=== PATIENT | female | born 1990 | race Caucasian/White ===

== ENCOUNTER → 2023-04-05 | Outpatient (CLI) | payer SELFPAY ==
--- OUTSIDE RECORDS SUMMARY | 2023-04-05 20:03 | XMS RPT_ITS | CCD ---
Author Name Unknown Address [address] [place] [address] Organization [facility] Care Team Providers Care Test Skein Winder Name Role Phone [facility] Primary Care Provider Unav ailable Kindra CUSTOMER SECURITY CLERK, Deyvi Primary Care Provider [phone] DEYVI BROWN Attending Unavailable DEYVI BROWN Admitting Unavailable DEYVI BROWN Primary Care Unavailable DEYVI BROWN Attending Unavailable DEYVI BROWN Admitting Unavailable DEYVI BROWN Primary Care Unavailable CARLENE BANG Attending Unavailable [facility] Primary Care Unavailable MARY JACKSON Attending Unavailable [facility] Primary Care Unavailable [facility] Primary Care Unavailable MARY JACKSON Referring Unavailable DEYVI BROWN Primary Care Unavailable MARY JACKSON Attending Unavailable JAIMIE DIXON Attending Unavailable MADEDEYVI Rodríguez Primary Care Unavailable CARLENE BANG Referring Unavailable [facility] Primary Care Unavailable CARLENE BANG Referring Unavailable [facility] Primary Care Unavailable MARY JACKSON Attending Unavailable [facility] Primary Care Unavailable MARY JACKSON Referring Unavailable [facility] Primary Care Unavailable MARY JACKSON Attending Unavailable MADEMarcos DEYVI Primary Care Unavailable MARY JACKSON Attending Unavailable MARY JACKSON Referring Unavailable Medications Current Medications Medication Drug Class(es) Dates Sig (Normalized) Sig (Original) escitalopram 10 mg oral tablet (9 sources) Serotonin Reuptake Inhibitor Start: 07-04-2022 take 1 tablet by mouth once daily escitalopram (Lexapro) 10 MG tablet TAKE 1 TABLET BY MOUTH EVERY DAY FOR 90 DAYS 0 07/04/2022 Active hydrOXYzine hydrochloride 25 mg oral tablet (1 source) Antihistamine Start: 01-08-2023 take 1-2 tablets by mouth three times daily as needed hydrOXYzine HCl (Atarax) 25 MG tablet 1-2 TABLET ORALLY THREE TIMES DAILY NEEDED 30 DAYS 0 01/08/2023 Active meloxicam 7.5 mg oral tablet (1 source) Nonsteroidal Anti-inflammatory Drug Start: 10-08-2022 End: 10-18-2022 take 1 tablet by mouth once daily meloxicam (Mobic) 7.5 MG tablet Indications: Left foot pain Take 1 tablet (7.5 mg) by mouth daily for 10 days. 10 tablet 0 10/08/2022 10/18/2022 Active Problems Active Problems Problem Classification Problem Date Documented Date Episodic/Chronic Menstrual disorders (3 sources) Mid-cycle bleeding; Translations: [Ovulation bleeding] Onset: 4 03-28-2023 Chronic Other connective tissue disease (7 sources) Pain in left foot; Translations: [Pain in left foot] 10-08-2022 Episodic Other connective tissue disease (1 source) Swelling of left foot; Translations: [Other specified soft tissue disorders] 12-21-2022 Episodic Other non-traumatic joint disorders (1 source) Effusion of first metatarsophalangeal joint; Translations: [Effusion, unspecified foot] 12-21-2022 Episodic Residual codes; unclassified (2 sources) Obstructive sleep apnea (adult) (pediatric); Translations: [OBSTRUCTIVE SLEEP APNEA] Onset: 3 Chronic Past or Other Problems Problem Classification Problem Date Documented Da te Episodic/Chronic Other connective tissue disease (2 sources) Other specified soft tissue disorders; Translations: [Other specified soft tissue disorders] Onset: 12-21-2022 Episodic Other connective tissue disease (2 sources) Pain in left foot; Translations: [Pain in left foot] Onset: 10-08-2022 Episodic Other non-traumatic joint disorders (2 sources) Effusion, unspecified foot; Translations: [Effusion, unspecified foot] Onset: 12-21-2022 Episodic Results Test Name Value Interpretation Reference Range Facil ity Vital Signs Date Time Vital Sign Value Performing Clinician Faci lity 03-28-2023 10:01-0500 Body height 162.6 cm Jaimie Dixon MD Work Phone: [facility] 03-28-2023 10:01-0500 Body mass index (BMI) [Ratio] 38.96 kg/m2 Jaimie Dixon MD Work Phone: [facility] 03-28-2023 10:01-0500 Body weight 102.97 kg Jaimie Dixon MD Work Phone: [facility] 03-28-2023 10:01-0500 Diastolic blood pressure 81 mm[Hg] Jaimie Dixon MD Work Phone: [facility] 03-28-2023 10:01-0500 Heart rate 80 /min Jaimie Dixon MD Work Phone: [facility] 03-28-2023 10:01-0500 Systolic blood pressure 133 mm[Hg] Jaimie Dixon MD Work Phone: [facility] 12-21-2022 08:19-0400 Body height 165.1 cm Tabernash Heindel DO Work Phone: [facility] 12-21-2022 08:19-0400 Body mass index (BMI) [Ratio] 36.44 kg/m2 Tabernash Heindel DO Work Phone: [facility] 12-21-2022 08:19-0400 Body weight 99.34 kg Tabernash Heindel DO Work Phone: [facility] 12-21-2022 08:19-0400 Diastolic blood pressure 74 mm[Hg] Tabernash Heindel DO Work Phone: [facility] 12-21-2022 08:19-0400 Heart rate 71 /min Tabernash Heindel DO Work Phone: [facility] 12-21-2022 08:19-0400 Systolic blood pressure 109 mm[Hg] Tabernash Heindel DO Work Phone: [facility] 11-16-2022 08:30-0400 Body height 165.1 cm Tabernash Heindel DO Work Phone: [facility] 11-16-2022 08:30-0400 Body mass index (BMI) [Ratio] 36.44 kg/m2 Tabernash Heindel DO Work Phone: [facility] 11-16-2022 08:30-0400 Body weight 99.34 kg Tabernash Heindel DO Work Phone: [facility] 11-16-2022 08:30-0400 Diastolic blood pressure 77 mm[Hg] Tabernash Heindel DO Work Phone: [facility] 11-16-2022 08:30-0400 Systolic blood pressure 111 mm[Hg] Tabernash Heindel DO Work Phone: [facility] 11-06-2022 10:14-0400 Body height 165.1 cm Tabernash Heindel DO Work Phone: [facility] 11-06-2022 10:14-0400 Body mass index (BMI) [Ratio] 36.44 kg/m2 Tabernash Heindel DO Work Phone: [facility] 11-06-2022 10:14-0400 Body weight 99.34 kg Tabernash Heindel DO Work Phone: [facility] 11-06-2022 10:14-0400 Diastolic blood pressure 79 mm[Hg] Tabernash Heindel DO Work Phone: [facility] 11-06-2022 10:14-0400 Heart rate 75 /min Tabernash Heindel DO Work Phone: [facility] 11-06-2022 10:14-0400 Systolic blood pressure 114 mm[Hg] Tabernash Heindel DO Work Phone: [facility] 10-25-2022 13:33-0400 Body height 165.1 cm Tabernash Heindel DO Work Phone: [facility] 10-25-2022 13:33-0400 Body mass index (BMI) [Ratio] 36.44 kg/m2 Tabernash Heindel DO Work Phone: [facility] 10-25-2022 13:33-0400 Body weight 99.34 kg Tabernash Heindel DO Work Phone: [facility] 10-25-2022 13:33-0400 Diastolic blood pressure 81 mm[Hg] Tabernash Heindel DO Work Phone: [facility] 10-25-2022 13:33-0400 Heart rate 73 /min Tabernash Heindel DO Work Phone: [facility] 10-25-2022 13:33-0400 Systolic blood pressure 123 mm[Hg] Tabernash Heindel DO Work Phone: [facility] 10-08-2022 12:51-0400 Body mass index (BMI) [Ratio] 36.44 kg/m2 Carlene Shannondallasjennifer EMOTIONALLY IMPAIRED TEACHER - GASTROENTEROLOGY PROFESSOR Work Phone: [facility] 10-08-2022 12:51-0400 Body temperature 98.01 [degF] Carlene Shannondallasjennifer EMOTIONALLY IMPAIRED TEACHER - GASTROENTEROLOGY PROFESSOR Work Phone: [facility] 10-08-2022 12:51-0400 Body weight 99.34 kg Carlene Bang EMOTIONALLY IMPAIRED TEACHER - GASTROENTEROLOGY PROFESSOR Work Phone: [facility] 10-08-2022 12:51-0400 Diastolic blood pressure 80 mm[Hg] Carlene Bang EMOTIONALLY IMPAIRED TEACHER - GASTROENTEROLOGY PROFESSOR Work Phone: [facility] 10-08-2022 12:51-0400 Heart rate 71 /min Carlene Shannondallasjennifer EMOTIONALLY IMPAIRED TEACHER - GASTROENTEROLOGY PROFESSOR Work Phone: [facility] 10-08-2022 12:51-0400 SaO2% (BldA) [Mass fraction] 96 % Carlene Bang EMOTIONALLY IMPAIRED TEACHER - GASTROENTEROLOGY PROFESSOR Work Phone: [facility] 10-08-2022 12:51-0400 Systolic blood pressure 133 mm[Hg] Carlene Bang EMOTIONALLY IMPAIRED TEACHER - GASTROENTEROLOGY PROFESSOR Work Phone: [facility] Encounters Encounter Date Encounter Type Care Provider Facility Start: 03-28-2023 End: 03-28-2023 ambulatory JAIMIE DIXON [facility] Start: 03-28-2023 End: 03-28-2023 Encounter for gynecological examination (general) (routine) without abnormal findings JAIMIE DIXON [facility] Start: 03-28-2023 End: 03-28-2023 Initial preventive medicine new pt age 18-39yrs Jaimie Dixon MD Work Phone: [facility] Procedures Date Procedure Procedure Detail Performing Clinician Start: 12-11-2022 Mri lower extrem oth /thn jt w/o contr matrl Mary Jackson DO Work Phone: Start: 11-06-2022 Follow-up visit Follow-up MARY MATTNICOLE Start: 10-25-2022 Radex foot complete minimum 3 views Mary Jackson DO Work Phone: Start: 10-08-2022 Radex foot complete minimum 3 views Carlene Mayank Bang EMOTIONALLY IMPAIRED TEACHER - GASTROENTEROLOGY PROFESSOR Work Phone: Plan of Treatment Date Care Activity Detail Author Start: 2050 RSV Immunization aged 60 or older (1 - 1-dose 60+ series) RSV Immunization aged 60 or older (1 - 1-dose 60+ series) [facility] Start: 2040 Zoster Vaccines (1 of 2) Zoster Vaccines (1 of 2) [facility] Start: 07-11-2023 End: 07-11-2023 Patient encounter procedure 07/11/2023 8:00 AM EDT Office Visit [facility] [address] [place] [address] Naveen Roger DO [address] [place] [address] [facility] Start: 04-23-2023 End: 04-23-2023 Patient encounter procedure 04/23/2023 10:45 AM EST Office Visit [facility] [address] [place] [address] [address] [place] [address] Jaimie Dixon MD [address] [place] [address] [facility] Start: 04-23-2023 End: 04-23-2023 Professional / ancillary services management 04/23/2023 10:00 AM EST Ancillary Procedure [facility] [address] [place] [address] [facility] Start: 03-28-2023 End: 03-28-2024 Thyroxine (T4) free [Mass/volume] in Serum or Plasma T4, free Lab Routine Intermenstrual bleeding Expected: 03/28/2023 (Approximate), Expires: 03/28/2024 [facility] Payers Date Payer Category Payer Unknown [facility] [id number] 2014-Present [address] [place] [address] Commercial [id number] 1990 Unknown [id number] 1990 Unknown [id number] 1959 Self-pay 1959 Unknown [id number] Social History Date Type Detail Facility Start: 03-24-2022 Tobacco smoking status NHIS Never sm oked tobacco [facility] Start: 03-24-2022 Tobacco use and exposure Smokeless t obacco non-user [facility] Start: 10-08-2022 End: 03-28-2023 Alcohol intake Current drinker of alcohol (finding) [facility] Start: 10-08-2022 End: 03-28-2023 Alcohol intake [facility] Start: 10-08-2022 End: 03-28-2023 Tobacco use panel [facility] Start: 1990 Sex Assigned At Not on file [facility] Start: 10-15-2022 End: 11-20-2022 Exposure to SARS-CoV-2 (event) Not sure [facility] Clinical Notes 10-08-2022 to 03-28-2023 Jaimie Dixon MD - 03/28/2023 10:00 AM Case Angela Jackson, DO - 12/21/2022 8:30 AM Stephen Jackson, DO - 11/16/2022 8:30 AM Stephen Jackson, DO - 11/06/2022 10:10 AM EDT Note Date & Type Note Facility 03-28-2023 History of Presen t illness Narrative Formatting of this note is different fro m the original. Serenity Bello 03/28/2023 32 y.o. Primary Care Physician: Deyvi Brown NP Chief Complaint Patient presents with New Patient Annual exam HPI : Serenity Bello is a 32 y.o. female here for annual exam Gynecologic History: Patient's last menstrual period was 03/02/2023 (exact date). Menses are regular. Menses occur every regular every 28-30 days. Flow is moderate. Intermenstrual bleeding: Yes spotting midcycle about 6 times over a calendar year Dysmenorrhea: Yes Sexually Active: never. She denies a chance of or STIs STD History: No Reversible Control: No HPV vaccination completed: No PAP: n/a OB History Para Term AB Living 0 0 0 0 0 0 SAB IAB Ectopic Multiple Live Births 0 0 0 0 0 History reviewed. No pertinent past medical history. History reviewed. No pertinent surgical history. Family History Problem Relation Name Age of Onset Kidney disease Mother accident at 17 caused her to be paralized Cancer Maternal Grandfather Cancer Paternal Grandfather Social History Socioeconomic History Marital status: Single Spouse name: Not on file Number of children: Not on file Years of education: Not on file Highest education level: Not on file Occupational History Not on file Tobacco Use Smoking status: Never Smokeless tobacco: Never Vaping Use Vaping Use: Never used Substance and Sexual Activity Alcohol use: Yes Alcohol/week: 1.0 standard drink of alcohol Types: 1 Glasses of wine per week Drug use: Never Sexual activity: Never Other Topics Concern Not on file Social History Narrative Not on file Social Determinants of Health Financial Resource Strain: Not on file Food Insecurity: Not on file Transportation Needs: Not on file Physical Activity: Not on file Stress: Not on file Social Connections: Not on file Intimate Partner Violence: Not on file Housing Stability: Not on file MEDICATIONS: Current Outpatient Medications Medication Sig Dispense Refill escitalopram (Lexapro) 10 MG tablet TAKE 1 TABLET BY MOUTH EVERY DAY FOR 90 DAYS hydrOXYzine HCl (Atarax) 25 MG tablet 1-2 TABLET ORALLY THREE TIMES DAILY NEEDED 30 DAYS No current facility-administered medications for this visit. ALLERGIES: Allergies as of 03/28/2023 (No Known Allergies) REVIEW OF SYSTEMS: CONSTIUTIONAL: No fever, chills or malaise; No weight change or fatigue CV: No Chest Pain with Exertion, Palpitations, Syncope, Edema, Arrhythmia RESPIRATORY: No SOB, Pneumoniae,Cough, BREAST: No breast abnormalities or lumps GI: No Indigestion, Heartburn, Nausea, vomiting, Diarrhea, Constipation,Bloating or Bowel Changes; No Bloody Stools or melena : No Dysuria, Hematuria or Nocturia. No Urinary Incontinence or Vaginal Discharge,vaginal bleeding, or dysparuenia. NEURO: No CVA, Migraines, Epilepsy, Seizure Hx, or Limb Weakness DERM: No Rash, Itching, Hives, Mole Changes or Cancer PSYCH: No Depression, Homicidal thoughts,suicidal thoughts, or anxiety MUSCULOSKELETAL: No Arthralgia, Arthritis,Gout,Osteoporosis or Rheumatism HEME and LYMPH :No Lymphoma, Von Willebrand's, Hemophillia or Bleeding History PHYSICAL EXAM: Vitals: 03/28/23 1001 BP: 133/81 Pulse: 80 Weight: 227 lb (103 kg) Height: 5' 4 (1.626 m) Body mass index is 38.96 kg/m . NURSING UNIT COORDINATOR EXAM: Breasts: no masses no skin changes, no nipple retraction or discharge. EXTERNAL GENITALIA: normal female structures VAGINA: normal ruggae, no lesions, normal discharge CERVIX: no lesions, no cervical motion tenderness, normal appearance. VAGINA VAULT: normal. Minimal relaxation UTERUS: normal mobility, nontender, normal size, shape and consistency. ADNEXA: normal, non tender no masses URETHRA: normal. nontender BLADDER: non tender. ANUS/PERINEUM: no hemorrhoids, masses or warts noted. GENERAL EXAM CONSTITUTIONAL: Well developed, well nourished, well groomed. no acute distress NECK: no thyromegaly, supple. CARDIOVASCULAR: normal rate and rhythm, no edema RESPIRATORY: Normal effort, normal lung sounds ABDOMEN:soft, non-tender, non-distended, no hepatospleenomegaly SKIN: intact, dry NEUROLOGICAL: no gross motor or sensory deficits noted. . MUSCULOSKETAL: normal gait, no cyanosis. PSYCHIATRIC Normal mood and affect, A&O x3. ASSESSMENT/PLAN: There are no diagnoses linked to this encounter. No follow-ups on file. control and barrier recommendations discussed. STD counseling and prevention reviewed. Gardisil counseling completed for all patients 9-26 yo. Routine health maintenance per patients PCP. Osteoporosis is a disease process that begins in young women. Recommended daily intake is Calcium 1000mg and Vitamin D 600IU daily to help build strong bones for later in life. Healthy diet and exercise is encouraged, goal is a normal BMI of <25. ACOG Pap smear guidelines not recommended for women under the age of 21.An annual exam with pelvic exam and physician discussion is still recommended. Recommended screening for STDs to help ensure future fertility and decrease risk of pelvic inflammatory disease. Respect your body and protect it from STDs and by requesting your partner to wear a condom. It is recommended to obtain the HPV vaccine for cervical cancer prevention. Be up to date on vaccines including Tetanus (DPT), Rubella, and Varicella (chicken pox). PAP Ultrasound TSH and free T4 A follow up will be scheduled to review her results. documented in this encounter [facility] 12-21-2022 History of Presen t illness Narrative Formatting of this note is different fro m the original. Images from the original note were not included. [facility] [address] [place] [phone] Dept: [phone] Dept Chief Complaint Patient presents with Follow-up Left Foot Subjective History of Present Illness: Serenity Bello follows up today for left foot pain. Since the last visit on 11/16/2022, symptoms are worsening. Current symptoms are aching and throbbing. She rates symptoms as a 2/10 at rest and a 4/10 at worst. Imaging to date: X-ray October 2022 and MRI November 2022 Treatment to date: PT/OT/HEP: HEP not helping Ice: no Heat: no Medications: Tylenol: no NSAIDs: meloxicam daily for 10 days (7.5mg) Oral steroids: no Muscle relaxants: no Nerve medications: no Targeted injections: none Assistive devices: none Denies fevers, malaise, redness, warmth. Symptoms have been since August. Has had some swelling. Never warm or red. Fall risk assessment: Less than 65, not applicable Objective Visit Vitals BP 109/74 Pulse 71 Physical Exam: General: Alert, well appearing, no acute distress. Respiratory: Breathing comfortably on room air. No respiratory distress. Skin: Warm, dry, intact. No visible rashes or erythema overlying area of focused exam. Left foot Inspection: Swelling: mild throughout dorsal foot Ecchymosis: is not observed Very sathya diffuse erythema today . no warmth Edema: None Ankle ROM: normal and equal bilaterally Pain to palpation: base of 4th met, mild at calcaneus No pain to: Nontender elsewhere throughout foot, ankle Vascular: normal DP and PT pulses, no trophic changes or ulcerative lesions, and normal sensory exam Right foot Inspection: Swelling: none Ecchymosis: is not observed No erythema . no warmth Edema: None Ankle ROM: normal and equal bilaterally Vascular: no trophic changes or ulcerative lesions, and normal sensory exam External Notes None available Labs No results found for: HGBA1C No results found for: CREATININE Imaging Patient Name: SERENITY BELLO : 1990 [facility]#: [id number] Exam Date/Time: 12/11/2022 14:24 Procedure: MR FOOT LEFT WO IV CONTRAST Ordering Provider: JACKSON BLOSSOM Reason For Exam: Examination: MRI Left foot Clinical Indication: Pain Comparison: None Findings Multiplanar multisequence MRI images were obtained through the foot without intravenous gadolinium. Nonspecific subcutaneous edema along the dorsum of the mid and forefoot. No focal fluid collection. Small first MTP joint effusion. No additional joint effusion. No evidence of fracture, dislocation, or subluxation. No periostitis or abnormal bone marrow signal intensity. No solid or cystic mass lesion. No significant productive or erosive arthropathy. No intermetatarsal bursitis or neuroma. No evidence of plantar fasciitis or fibroma. No evidence of plantar plate injury. The visualized flexor and extensor tendons are intact without evidence of tenosynovitis, tendinosis, or tear. Normal muscle volume and signal intensity. IMPRESSION: Impression: 1. Nonspecific subcutaneous edema along the dorsum of the mid and forefoot. No focal fluid collection. 2. Small first MTP joint effusion. Imaging independently reviewed in room with patient. Agree with radiologist interpretation. Additionally there does appear to be small effusions at the 3rd and 4th tmt joints. EMG/NCT None available Procedure No procedures completed today Assessment Diagnosis Plan 1. Effusion of metatarsophalangeal (MTP) joint of great toe Rheumatoid factor Sedimentation rate, automated C-reactive protein GAUDENCIO Cyclic citrul peptide antibody, IgG CBC auto differential Uric acid Rheumatoid factor Sedimentation rate, automated C-reactive protein GAUDENCIO Cyclic citrul peptide antibody, IgG CBC auto differential Uric acid 2. Swelling of left foot Rheumatoid factor Sedimentation rate, automated C-reactive protein GAUDENCIO Cyclic citrul peptide antibody, IgG CBC auto differential Uric acid Rheumatoid factor Sedimentation rate, automated C-reactive protein GAUDENCIO Cyclic citrul peptide antibody, IgG CBC auto differential Uric acid Plan Imaging reviewed in room with patient. Discussed the non specific soft tissue swelling as well as joint effusions. Given overall clinical picture I think infection unlikely, though a possibility given the subcutaneous edema. Inflammatory disordes also possible. Will get labs for further evaluation. If not suggestive of infection will treat with prednisone, consider rheumatology referral. Will follow up once blood work completed to review results and next steps. No follow-ups on file. Mary Jackson DO 12/21/2022 8:14 AM Please note that portions of this note may have been completed with voice recognition software. Documentation reviewed prior to signing but minor errors in triage registered nurse may have occurred. documented in this encounter [facility] 11-16-2022 History of Presen t illness Narrative Formatting of this note is different fro m the original. Images from the original note were not included. [facility] [address] [place] [phone] Dept: [phone] Dept Chief Complaint Patient presents with Follow-up Left foot Subjective History of Present Illness: Serenity Bello follows up today for left foot pain. Since the last visit on 11/06/2022, symptoms are improving, 20% better. Current symptoms are aching. She rates symptoms as a 4/10 at rest and a 5/10 at worst. Imaging to date: X-ray September 2022 Treatment to date: PT/OT/HEP: HEP, helpful Ice: no Heat: no Medications: Tylenol: no NSAIDs: Meloxicam Oral steroids: no Muscle relaxants: no Nerve medications: no Targeted injections: none Assistive devices: pneumatic boot, wore consistently 1 week ago, not as consistently this past week. Continues to have pain whether or not she wears the boot Fall risk assessment: Less than 65, not applicable Objective Visit Vitals BP 111/77 Physical Exam: General: Alert, well appearing, no acute distress. Respiratory: Breathing comfortably on room air. No respiratory distress. Skin: Warm, dry, intact. No visible rashes or erythema overlying area of focused exam. Left Foot: Inspection: Swelling: none Ecchymosis: is not observed No redness noted. no warmth Edema: Trace Ankle ROM: normal Pain to palpation: Midshaft and base of 3rd and 4th metatarsals, now also mildly tender shaft of 5th met. Worst tenderness remains at base of 4th. Mild ttp atfl today. No pain to: Nontender elsewhere throughout foot, ankle and lowerleg Laxity/ Other tests: Anterior Drawer: trace, Inversion Talar Tilt: negative, Eversion Talar Tilt: negative, Kleiger's Test: negative, Metatarsal Squeeze / Compression Test: negative, and Hop Test: mild pain Strength: 5 on 5 tibialis anterior strength, 5 of 5 EHL strength, 5 of 5 gastroc-soleus strength, 5 of 5 EDL strength, 5 of 5 peroneus longus, 5 of 5 tibialis posterior, 5 of 5 FHL, and 5 of 5 FDL, 5/5 EHL, 5/5 EDL Vascular: normal DP and PT pulses, no trophic changes or ulcerative lesions, and normal sensory exam Foot position: Subtalar Neutral. Normal arch. External Notes No pertinent interval updates Labs No results found for: HGBA1C No results found for: CREATININE Imaging L foot x rays repeated today and independently reviewed Midfoot alignment maintained. No fracture or periosteal reaction. Normal soft tissues. EMG/NCT None available Procedure No procedures completed today Assessment Diagnosis Plan 1. Left foot pain XR foot 3+ views left MR foot left wo IV contrast Plan Ongoing pain and tenderness localized to the base of the 4th metatarsal not improved with one month of walking boot for presumptive bone stress injury. Also no significant improvement with HEP that was given at last visit or Meloxicam previously prescribed. Exam remains concerning for bony pathology. Given this, will proceed with MRI for diagnostic clarity. In the interim ok to wean out of boot as tolerated since she has not had benefit from it. Continue HEP with activity modification and tylenol or nsaids as needed. Will follow up once MRI completed to review results and next steps. Follow up for TBD pending MRI. Mary Jackson DO 11/16/2022 8:31 AM Please note that portions of this note may have been completed with voice recognition software. Documentation reviewed prior to signing but minor errors in triage registered nurse may have occurred. documented in this encounter [facility] 11-06-2022 History of Presen t illness Narrative Formatting of this note is different fro m the original. Images from the original note were not included. [facility] [address] [place] [id number] Dept: [phone] Dept Chief Complaint Patient presents with Follow-up Left foot Subjective History of Present Illness: Serenity Bello follows up today for right foot pain. Since the last visit on 10/25/2022, symptoms are improving, 30% better. Current symptoms are aching. She rates symptoms as a 2/10 at rest and a 6/10 at worst. Imaging to date: X-ray September 2022 Treatment to date: PT/OT/HEP: no Ice: no Heat: no Medications: Tylenol: no NSAIDs: no Oral steroids: no Muscle relaxants: no Nerve medications: no Targeted injections: none Assistive devices: pneumatic boot Pain seems to have moved. Now worse at lateral ankle. Fall risk assessment: Less than 65, not applicable Objective Visit Vitals BP 114/79 Pulse 75 Physical Exam: General: Alert, well appearing, no acute distress. Respiratory: Breathing comfortably on room air. No respiratory distress. Skin: Warm, dry, intact. No visible rashes or erythema overlying area of focused exam. Left Foot: Inspection: Swelling: none Ecchymosis: is not observed No redness noted. no warmth Edema: Trace Ankle ROM: normal Pain to palpation: Midshaft and base of 3rd and 4th metatarsals - less tender htan last exam. Now today worst ttp over ATFL No pain to: Nontender elsewhere throughout foot, ankle and lowerleg Laxity/ Other tests: Anterior Drawer: trace, Inversion Talar Tilt: negative, Eversion Talar Tilt: negative, Kleiger's Test: negative, Metatarsal Squeeze / Compression Test: negative, and Hop Test: negative Strength: 5 on 5 tibialis anterior strength, 5 of 5 EHL strength, 5 of 5 gastroc-soleus strength, 5 of 5 EDL strength, 5 of 5 peroneus longus, 5 of 5 tibialis posterior, 5 of 5 FHL, and 5 of 5 FDL Vascular: normal DP and PT pulses, no trophic changes or ulcerative lesions, and normal sensory exam Foot position: Subtalar Neutral. Normal arch. External Notes No pertinent interval updates Labs No results found for: HGBA1C No results found for: CREATININE Imaging No new imaging since last visit EMG/NCT None available Procedure No procedures completed today Assessment No diagnosis found. Plan Less tender over metatarsals and no pain with hop, do see some improvement with boot for presumed BSI. ATFL pain today may be related to positioning from boot use Will do two more weeks wbat in walking boot. Can come out of boot to do foot/ankle strengthening hep which was given today Two week recheck. Consider mri for diagnostic clarity if ongoin significant bony pain not improved with four weeks in boot and start of HEP. No follow-ups on file. Mary Jackson DO 11/06/2022 10:12 AM Please note that portions of this note may have been completed with voice recognition software. Documentation reviewed prior to signing but minor errors in triage registered nurse may have occurred. documented in this encounter [facility] 11-06-2022 History of Presen t illness Narrative Formatting of this note is different fro m the original. Images from the original note were not included. [facility] [id number] Dept: [phone] Dept Chief Complaint Patient presents with Follow-up Left foot Subjective History of Present Illness: Serenity Bello follows up today for right foot pain. Since the last visit on 10/25/2022, symptoms are improving, 30% better. Current symptoms are aching. She rates symptoms as a 2/10 at rest and a 6/10 at worst. Imaging to date: X-ray September 2022 Treatment to date: PT/OT/HEP: no Ice: no Heat: no Medications: Tylenol: no NSAIDs: no Oral steroids: no Muscle relaxants: no Nerve medications: no Targeted injections: none Assistive devices: pneumatic boot Pain seems to have moved. Now worse at lateral ankle. Fall risk assessment: Less than 65, not applicable Objective Visit Vitals BP 114/79 Pulse 75 Physical Exam: General: Alert, well appearing, no acute distress. Respiratory: Breathing comfortably on room air. No respiratory distress. Skin: Warm, dry, intact. No visible rashes or erythema overlying area of focused exam. Left Foot: Inspection: Swelling: none Ecchymosis: is not observed No redness noted. no warmth Edema: Trace Ankle ROM: normal Pain to palpation: Midshaft and base of 3rd and 4th metatarsals - less tender htan last exam. Now today worst ttp over ATFL No pain to: Nontender elsewhere throughout foot, ankle and lowerleg Laxity/ Other tests: Anterior Drawer: trace, Inversion Talar Tilt: negative, Eversion Talar Tilt: negative, Kleiger's Test: negative, Metatarsal Squeeze / Compression Test: negative, and Hop Test: negative Strength: 5 on 5 tibialis anterior strength, 5 of 5 EHL strength, 5 of 5 gastroc-soleus strength, 5 of 5 EDL strength, 5 of 5 peroneus longus, 5 of 5 tibialis posterior, 5 of 5 FHL, and 5 of 5 FDL Vascular: normal DP and PT pulses, no trophic changes or ulcerative lesions, and normal sensory exam Foot position: Subtalar Neutral. Normal arch. External Notes No pertinent interval updates Labs No results found for: HGBA1C No results found for: CREATININE Imaging No new imaging since last visit EMG/NCT None available Procedure No procedures completed today Assessment Diagnosis Plan 1. Left foot pain Plan Less tender over metatarsals and no pain with hop, do see some improvement with boot for presumed BSI. ATFL pain today may be related to positioning from boot use Will do two more weeks wbat in walking boot. Can come out of boot to do foot/ankle strengthening hep which was given today Two week recheck. Consider mri for diagnostic clarity if ongoin significant bony pain not improved with four weeks in boot and start of HEP. Follow up in about 2 weeks (around 11/20/2022). Mary Jackson DO 11/08/2022 10:12 AM Please note that portions of this note may have been completed with voice recognition software. Documentation reviewed prior to signing but minor errors in triage registered nurse may have occurred. documented in this encounter [facility] 10-25-2022 History of Presen t illness Narrative Formatting of this note is different fro m the original. Images from the original note were not included. [facility] [address] [place] [id number] Dept: [phone] Dept Chief Complaint Patient presents with New Patient Left Foot Subjective History of Present Illness: Serenity Bello is a 32 y.o. female who presents today for evaluation of left foot pain. Location: dorsal Onset: 1 month Injury: no Quality: aching, throbbing, sharp, and burning Radiation of symptoms: yes - left cavanaugh Severity: 3/10 at rest and 7/10 at worst Exacerbating factor(s): walking Relieving factor(s): ice Timing: intermittently Imaging to date: X-ray September 2022 Treatment to date: PT/OT/HEP: no Ice: yes, helpful Heat: no Medications: Tylenol: no NSAIDs: yes, Meloxicam/Mobic, helpful Oral steroids: no Muscle relaxants: no Nerve medications: no Targeted injections: none Assistive devices: none Prior surgery: no Noticed pain after a run. Was doing a 20-30 min walk run a couple times a week to month. In past couple weeks noticed a faint bruise and has had mild swelling at the dorsum of her foot. Sometimes worse with walking, sometimes worse hanging foot off table. 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 Respiratory: Breathing comfortably on room air. No respiratory distress. Skin: Warm, dry, intact. No visible rashes or erythema overlying area of focused exam. Right Foot: Inspection: Swelling:none Ecchymosis: is not observed No redness noted. no warmth Edema: Negative Ankle ROM: normal Strength: 5 on 5 tibialis anterior strength, 5 of 5 gastroc-soleus strength, 5 of 5 peroneus longus, and 5 of 5 tibialis posterior Vascular: normal DP and PT pulses, no trophic changes or ulcerative lesions, and normal sensory exam Foot position: Subtalar Neutral. Normal arch. Left Foot: Inspection: Swelling:mild and lateral foot Ecchymosis: is not observed No redness noted. no warmth Edema: Trace Ankle ROM: normal and equal bilaterally Pain to palpation: Midshaft and base of 3rd and 4th metatarsals (worse at 4th) No pain to: Nontender elsewhere throughout foot, ankle and lowerleg Laxity/ Other tests: Anterior Drawer: negative, Inversion Talar Tilt: negative, Eversion Talar Tilt: negative, Kleiger's Test: negative, Metatarsal Squeeze / Compression Test: negative, and Hop Test: positive Strength: 5 on 5 tibialis anterior strength, 5 of 5 EHL strength, 5 of 5 gastroc-soleus strength, 5 of 5 EDL strength, 5 of 5 peroneus longus, 5 of 5 tibialis posterior, 5 of 5 FHL, and 5 of 5 FDL Vascular: normal DP and PT pulses, no trophic changes or ulcerative lesions, and normal sensory exam Foot position: Subtalar Neutral. Normal arch. External Notes Reviewed, urgent care Labs No results found for: HGBA1C No results found for: CREATININE Imaging 3V L foot: no fracture or periosteal reaction WB AP, lateral and oblique views of the Left foot were obtained today and personally reviewed. The midfoot alignment is normal. The talar dome is normal. The subtalar joint is normal. No other soft tissue or bony abnormalities are noted. EMG/NCT None available Procedure No procedures completed today Assessment Diagnosis Plan 1. Left foot pain [facility] [place] XR foot 3+ views left General supply request: walking book Plan Focal bony tenderness worse gallo bearing, concerning for bone stress injury. Pathophysiology and treatment discussed. Will proceed with wbat in walking boot and recheck in two weeks. Advised tylenol over nsaids for pain, ice 20 on/20 off Follow up in about 2 weeks (around 11/08/2022). Mary Jackson DO 10/27/2022 1:30 PM Please note that portions of this note may have been completed with voice recognition software. Documentation reviewed prior to signing but minor errors in triage registered nurse may have occurred. documented in this encounter [facility] 10-08-2022 History of Presen t illness Narrative Formatting of this note is different fro m the original. Images from the original note were not included. Subjective: Patient: Serenity Bello is a 32 y.o. female Patient presents to urgent care for complaints of left foot pain for the past 3 weeks. Denies any specific injury, but she did start running again recently. States that she wears her normal running shoes. Denies tying shoes too tight. States pain and swelling to top of left foot. She did have some swelling to outside of left ankle. Denies any ankle pain. Denies any numbness/tingling or weakness. States that she did have previous left ankle sprain years ago, but denies any other previous injury. She has been using ice and elevation at home with minimal improvement in symptoms. States that she has increased pain to top of left foot with extension. She did start going to physical therapy for her foot. Physical therapist prefer that she have x-rays completed before physical therapy begins. Review of Systems Constitutional: Positive for activity change (left foot pain). Negative for chills, fatigue and fever. Musculoskeletal: Positive for arthralgias (left foot pain), gait problem and joint swelling (left foot and ankle swelling). Skin: Negative for color change, pallor, rash and wound. Allergic/Immunologic: Negative for environmental allergies, food allergies and immunocompromised state. Neurological: Negative for weakness and numbness. No Known Allergies Current Outpatient Medications on File Prior to Visit Medication Sig Dispense Refill escitalopram (Lexapro) 10 MG tablet TAKE 1 TABLET BY MOUTH EVERY DAY FOR 90 DAYS No current facility-administered medications on file prior to visit. No past medical history on file. Social History Tobacco Use Smoking status: Never Smokeless tobacco: Never Substance Use Topics Alcohol use: Yes Alcohol/week: 1.0 standard drink of alcohol Types: 1 Glasses of wine per week Objective: BP 133/80 (BP Location: Left arm, Patient Position: Sitting, BP Cuff Size: Adult long) Pulse 71 Temp 36.7 C (98 F) Wt 219 lb (99.3 kg) SpO2 96% BMI 36.44 kg/m Physical Exam Vitals and nursing note reviewed. Constitutional: General: She is not in acute distress. Appearance: Normal appearance. She is not ill-appearing or toxic-appearing. HENT: Head: Normocephalic. Pulmonary: Effort: Pulmonary effort is normal. No respiratory distress. Musculoskeletal: Left lower leg: No swelling, deformity, lacerations, tenderness or bony tenderness. Left ankle: Swelling (Mild, generalized swelling to left ankle.) present. No deformity or ecchymosis. No tenderness. No lateral malleolus or medial malleolus tenderness. Normal range of motion. Normal pulse (Left dorsalis pedis +2). Left Achilles Tendon: No tenderness. Left foot: Normal range of motion and normal capillary refill. Swelling (Mild, localized swelling to dorsal aspect of left foot) and tenderness (Tenderness to dorsal swelling on left foot) present. No deformity, foot drop, laceration, bony tenderness or crepitus. Feet: Skin: General: Skin is warm and dry. Neurological: Mental Status: She is alert and oriented to person, place, and time. Gait: Gait normal. Psychiatric: Mood and Affect: Mood normal. Behavior: Behavior normal. Thought Content: Thought content normal. Judgment: Judgment normal. Assessment 1. Left foot pain Plan Diagnoses and all orders for this visit: Left foot pain - XR foot 3+ views left - meloxicam (Mobic) 7.5 MG tablet; Take 1 tablet (7.5 mg) by mouth daily for 10 days. - [facility] [place]; Future Left foot x-ray completed in office. Radiologist read no fractures identified. If there is clinical concern for an occult stress fracture, repeat study is recommended in 7 to 10 days. Suspect tendinitis to top of left foot. We will start meloxicam at this time. Patient denies chance of . Discussed not taking other NSAIDs with meloxicam. Encouraged use of ice and elevation at home. Orthopedic referral was placed. I did recommend follow-up. Discussed that if symptoms continue, then repeat imaging may be warranted. Educated on symptoms that warrant prompt follow-up such as increased pain, difficulty ambulating, increased swelling, numbness/tingling, weakness, or any new/worsening symptoms. Vital signs stable, afebrile. Patient in no acute distress. Ambulating without difficulty. Educated on plan of care and verbalized understanding. KATHY Angeles CNP 10/08/22 1:35 PM If symptoms do not improve, worsen, or new symptoms develop, see PCP for further evaluation. documented in this encounter [facility]* Diagnosis Left foot pain Pain in soft tissues of limb [facility] Diagnosis Left foot pain- Primary Pain in soft tissues of limb [facility]* Diagnosis Left foot pain- Primary Pain in soft tissues of limb documented [facility]* Diagnosis Left foot pain Pain in soft tissues of limb [facility] Diagnosis Effusion of metatarsophalangeal (MTP) joint of great toe- Primary Swelling of left foot [facility]* Diagnosis Women's annual routine gynecological examination- Primary Intermenstrual bleeding Metrorrhagia [facility]* Attachments The following attachments cannot be sent through Care Everywhere. 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 [address] [facility] [address] [place] [phone] Referral ID Status Reason Start Date Expiration Date Visits Requested Visits Authorized [id number] Pending Review Specialty Services Required 10/08/2022 10/08/2023 1 1 [facility] Reason for Referral Specialty Diagnoses / Procedures Referred By Gino shannon Referred To Contact Radiology Diagnoses Left foot pain Procedures MR foot left wo IV contrast Mary Jackson M, DO [address] [facility] [address] [place] [address] Referral ID Status Reason Start Date Expiration Date V isits Requested Visits Authorized [id number] Pending Review 11/16/2022 05/15/2023 1 1 Referral ID Status Reason Start Date Expiration Date Visits Re quested Visits Authorized [id number] Closed 11/16/2022 05/15/2023 1 1 Summary Purpose Family History No Family History Records FoundNo Family History Records Found Advance Directives No Advanced Directives Records FoundNo Advanced Directives Records Found Additional Source Comments Reason for Visit (unrecogniz ed section and content) Reason Comments New Patient Left Foot Specialty Diagnoses / Procedures Referred By Gino shannon Referred To Contact Orthopedic Surgery Diagnoses Left foot pain Carlene Bang, EMOTIONALLY IMPAIRED TEACHER - GASTROENTEROLOGY PROFESSOR [address] [address] Valdez Mrach MD [address] [facility] [address] [place] [address] Referral ID Status Reason Start Date Expiration Date V isits Requested Visits Authorized [id number] Closed Specialty Services Required 10/08/2022 10/08/2023 1 1 Reason Comments Follow-up Left foot Reason Comments Follow-up Left foot Specialty Diagnoses / Procedures Referred By Gino shannon Referred To Contact Radiology Diagnoses Left foot pain Procedures MR foot left wo IV contrast Manuel, Tabernash M, DO [address] [place] [address] Referral ID Status Reason Start Date Expiration Date Visits Re quested Visits Authorized [id number] Closed 11/16/2022 05/15/2023 1 1 Reason Comments Follow-up Left Foot Reason Comments New Patient Annual exam Care Teams (unrecognized sec tion and content) Test Skein Winder Relationship Specialty Start Date End Date [facility] [address] [place] [address] PCP - General 03/24/22 Test Skein Winder Relationship Specialty Start Date End Date [facility] [address] [place] [address] PCP - General 03/24/22 Test Skein Winder Relationship Specialty Start Date End Date [facility] [address] [place] [address] PCP - General 03/24/22 Test Skein Winder Relationship Specialty Start Date End Date Deyvi Brown NP [address] [place] [address] PCP - General Nurse Practitioner 11/20/22 Test Skein Winder Relationship Specialty Start Date End Date Deyvi Brown NP [address] [place] [address] PCP - General Nurse Practitioner 11/20/22 Test Skein Winder Relationship Specialty Start Date End Date Deyvi Brown NP [address] [place] [address] PCP - General Nurse Practitioner 11/20/22 INFORMATION SOURCE (unrecogn ized section and content) DATE CREATED AUTHOR AUTHOR'S LEXIS ATANGELICA 03/30/2023 [facility] FOR RECORDS PERTAINING TO PATIENTS WHO ARE OR HAVE BEEN ENROLLED IN A CHEMICAL DEPENDENCY/SUBSTANCEABUSE PROGRAM, SOME INFORMATION MAY BE OMITTED. This clinical summary was aggregated from multiple sources. Caution should be exercised in using it in the provision of clinical care. This summary normalizes information from multiple sources, and as a consequence, information in this document may materially change the coding, format and clinical context of patient data. In addition, data may be omitted in some cases. CLINICAL DECISIONS SHOULD BE BASED ON THE PRIMARY CLINICAL RECORDS. [email or web address] provides no warranty or guarantee of the accuracy or completeness of information in this document.
== END | disposition home or self-care (01) ==
LOC: SL 20:00
DX: G47.33 Obstructive sleep apnea (adult) (pediatric) (principal)
CPT/HCPCS: 95811